=== PATIENT | male | born 1995 | race African-American/Black ===

== ENCOUNTER 2025-04-07 20:05 | Emergency (ER) | payer SELFPAY ==
[2025-04-07 22:50] LABS: Influenza A Ag Negative; Influenza B Ag Negative; SARS-CoV-2 Antigen Rapid Res Negative (Negative)
--- NOTE | 2025-04-07 22:59 | ER ---
Nurse's Notes [facility] Name: Lucas Garces Age: 30 yrs Sex: Male : 1995 Arrival Date: 04/07/2025 Time: 20:05 Bed 9 Private MD: Diagnosis: Acute pharyngitis, unspecified;Cough Presentation: 04/07 20:24 Chief complaint: Patient states: congestion, sore throat, headache X1 day. Coronavirus lg3 screen: At this time, unable to obtain information related to travel outside the [place] Ebola Screen: No symptoms or risks identified at this time. Initial Sepsis Screen: Does the patient meet any 2 criteria? No. Patient's initial sepsis screen is negative. Does the patient have a suspected source of infection? No. Patient's initial sepsis screen is negative. Risk Assessment: Do you want to hurt yourself or someone else? Patient reports no desire to harm self or others. Onset of symptoms was April 06, 2025. 20:24 Method Of Arrival: Ambulatory lg3 20:24 Acuity: DIONICIO 4 lg3 Triage Assessment: 20:28 General: Appears in no apparent distress. comfortable, Behavior is calm, cooperative. lg3 Pain: Complains of pain in head. EENT: Reports nasal congestion nasal discharge pain when swallowing. Neuro: No deficits noted. Agee Agitation-Sedation Scale (RASS): 0 - Alert and Calm Level of Consciousness is awake, alert, obeys commands, Oriented to person, place, time, situation. Cardiovascular: No deficits noted. Denies chest pain, shortness of breath, Capillary refill < 3 seconds Clubbing of nail beds is absent JVD is absent Patient's skin is warm and dry. Respiratory: Reports cough that is persistent pain with cough Airway is patent Respiratory effort is even, unlabored, Respiratory pattern is regular, symmetrical, Breath sounds are clear bilaterally. GI: No deficits noted. No signs and/or symptoms were reported involving the gastrointestinal system. : No signs and/or symptoms were reported regarding the genitourinary system. Derm: No deficits noted. No signs and/or symptoms reported regarding the dermatologic system. Skin is intact, is healthy with good turgor, Skin is dry, Skin is normal, Skin temperature is warm. Musculoskeletal: No deficits noted. No signs and/or symptoms reported regarding the musculoskeletal system. Circulation, motion, and sensation intact. Range of motion: intact in all extremities. Historical: - Allergies: 20:28 No Known Allergies; lg3 - Home Meds: 20:28 None [Active]; lg3 - PMHx: 20:28 None; lg3 - PSHx: 20:28 None; lg3 - Immunization history:: Adult Immunizations up to date. - Infectious Disease History:: Denies. - Social history:: Smoking status: Patient denies any tobacco usage or history of. Patient/guardian denies using alcohol, street drugs. Screenin:30 [facility] ED Fall Risk Assessment (Adult) History of falling in the last 3 months, tb4 including since admission No falls in past 3 months (0 pts) Confusion or Disorientation No (0 pts) Intoxicated or Sedated No (0 pts) Impaired Gait No (0 pts) Mobility Assist Device Used No (0 pt) Altered Elimination No (0 pt) Score/Fall Risk Level 0 - 2 = Low Risk Oriented to surroundings, Maintained a safe environment. Abuse screen: Denies threats or abuse. Nutritional screening: No deficits noted. Tuberculosis screening: No symptoms or risk factors identified. Assessment: 21:30 Reassessment: Patient is alert, oriented x 3, equal unlabored respirations, skin tb4 warm/dry/pink. See triage note. Reassessment: Patient denies pain at this time. General: Appears. General: Appears in no apparent distress. Behavior is calm, cooperative. Pain: Denies pain. Neuro: No deficits noted. Level of Consciousness is awake, alert, obeys commands, Oriented to person, place, time, situation, Moves all extremities. Full function Gait is steady, Speech is normal, Facial symmetry appears normal. Cardiovascular: No deficits noted. Denies chest pain, shortness of breath. Respiratory: Reports cough that is non-productive, X1 day Airway is patent Trachea midline Respiratory effort is even, unlabored, Respiratory pattern is regular, Breath sounds are clear bilaterally. Onset: The symptoms/episode began/occurred yesterday, Denies shortness of breath at rest, labored breathing, pain with cough. GI: No deficits noted. No signs and/or symptoms were reported involving the gastrointestinal system. : No deficits noted. No signs and/or symptoms were reported regarding the genitourinary system. EENT: Nares with drainage noted Congestion. Oral mucosa is moist. Throat is clear. Derm: No deficits noted. No signs and/or symptoms reported regarding the dermatologic system. Skin is intact, is healthy with good turgor, Skin is moist, Skin is normal, Skin temperature is warm. Musculoskeletal: No deficits noted. No signs and/or symptoms reported regarding the musculoskeletal system. 23:27 Reassessment: Patient and/or family updated on plan of care and expected duration. Pain ha1 level reassessed. Patient is alert, oriented x 3, equal unlabored respirations, skin warm/dry/pink. Vital Signs: 20:24 BP 150 / 88; Pulse 86; Resp 17 S; Temp 98.5(TE); Pulse Ox 100% on R/A; Weight 61.23 kg lg3 (R); Height 5 ft. 7 in. (R); 21:30 BP 124 / 72; Pulse 84; Resp 20; Temp 97.6(O); Pulse Ox 100% on R/A; Weight 61.23 kg; tb4 Height 5 ft. 7 in. ; Pain 0/10; 23:27 BP 117 / 68; Pulse 79; Resp 18 S; Pulse Ox 100% on R/A; ha1 21:30 Body Mass Index 21.14 (61.23 kg, 170.18 cm) tb4 21:30 Pain Scale: Adult tb4 ED Course: 20:06 Patient arrived in ED. jj6 20:17 David Wilson PA is PHCP. cp 20:17 Amilcar Dasilva MD is Attending Physician. cp 20:28 Triage completed. lg3 20:28 Arm band placed on right wrist. lg3 21:30 Patient has correct armband on for positive identification. Call light in reach. tb4 Patient sitting in a chair. 23:26 No provider procedures requiring assistance completed. Patient did not have IV access ha1 during this emergency room visit. 23:27 Provided Education on: FOLLOW [employer] . ha1 Administered Medications: No medications were administered Medication: 21:30 VIS not applicable for this client. tb4 Outcome: 22:58 Discharge ordered by . cp 23:26 Discharged to home ambulatory, with family, ha1 23:26 Condition: stable 23:26 Discharge instructions given to patient, family, Instructed on discharge instructions, follow up and referral plans. medication usage, Demonstrated understanding of instructions, follow-up care, medications, Prescriptions given X 23:28 Patient left the ED. ha1 Signatures: David Wilson PA PA cp Able, Lacie RN RN lg3 Danette Pricej6 Sybil Jimenez, RN RN ha1 Susan Arnold RN RN tb4
--- NOTE | 2025-04-07 22:59 | EDPHYS ---
Physician Documentation [facility] Name: Lucas Garces Age: 30 yrs Sex: Male : 1995 Arrival Date: 04/07/2025 Time: 20:05 Bed 9 Private MD: ED Physician Amilcar Dasilva HPI: 04/07 21:20 This 30 yrs old Black Male presents to ER via Ambulatory with complaints of Cough, cp Congestion, Sore Throat, Headache. 21:20 The patient or guardian reports cough, that is intermittent, nasal congestion/drainage, cp sore throat. Onset: The symptoms/episode began/occurred yesterday. Associated signs and symptoms: Pertinent negatives: diarrhea, fever, vomiting. Historical: - Allergies: 20:28 No Known Allergies; lg3 - Home Meds: 20:28 None [Active]; lg3 - PMHx: 20:28 None; lg3 - PSHx: 20:28 None; lg3 - Immunization history:: Adult Immunizations up to date. - Infectious Disease History:: Denies. - Social history:: Smoking status: Patient denies any tobacco usage or history of. Patient/guardian denies using alcohol, street drugs. ROS: 21:25 Constitutional: Negative for body aches, chills, fever, poor PO intake, cp 21:25 Eyes: Negative for injury, pain, redness, and discharge, cp 21:25 ENT: Positive for sore throat, Negative for drainage from ear(s), ear pain, difficulty swallowing, difficulty handling secretions, 21:25 Respiratory: Positive for cough, with no reported sputum, Negative for shortness of breath, wheezing, 21:25 Abdomen/GI: Negative for abdominal pain, vomiting, diarrhea, constipation, 21:25 Neuro: Negative for headache, 21:25 All other systems are negative, Exam: 21:30 Constitutional: The patient appears in no acute distress, alert, awake, non-toxic, well cp developed, well nourished, 21:30 Head/Face: Normocephalic, atraumatic. cp 21:30 Eyes: Periorbital structures: appear normal, Conjunctiva: normal, no exudate, no injection, Sclera: no appreciated abnormality, Lids and lashes: appear normal, bilaterally, 21:30 ENT: External ear(s): are unremarkable, Ear canal(s): are normal, clear, TM's: dullness, bilaterally, Nose: is normal, Mouth: Lips: moist, Oral mucosa: moist, Posterior pharynx: Airway: no evidence of obstruction, patent, Tonsils: no enlargement, no exudate, erythema, that is mild, exudate, is not appreciated, 21:30 Neck: ROM/movement: Meningeal signs: are not present, Lymph nodes: no appreciated lymphadenopathy, 21:30 Cardiovascular: Rate: normal, 21:30 Respiratory: the patient does not display signs of respiratory distress, Respirations: normal, no use of accessory muscles, no retractions, labored breathing, is not present, Breath sounds: are clear throughout, no decreased breath sounds, no stridor, no wheezing, 21:30 Abdomen/GI: Inspection: abdomen appears normal, Vital Signs: 20:24 BP 150 / 88; Pulse 86; Resp 17 S; Temp 98.5(TE); Pulse Ox 100% on R/A; Weight 61.23 kg lg3 (R); Height 5 ft. 7 in. (R); 21:30 BP 124 / 72; Pulse 84; Resp 20; Temp 97.6(O); Pulse Ox 100% on R/A; Weight 61.23 kg; tb4 Height 5 ft. 7 in. ; Pain 0/10; 23:27 BP 117 / 68; Pulse 79; Resp 18 S; Pulse Ox 100% on R/A; ha1 21:30 Body Mass Index 21.14 (61.23 kg, 170.18 cm) tb4 21:30 Pain Scale: Adult tb4 MDM: 20:33 Medical Screening Exam initiated cp 22:57 Data reviewed: vital signs, nurses notes, lab test result(s), and as a result, I will cp discharge patient. 22:57 Differential Diagnosis: Bronchitis Influenza Pharyngitis Otitis Media Viral Syndrome cp Pneumonia. Counseling: I had a detailed discussion with the patient and/or guardian regarding the historical points, exam findings, and any diagnostic results supporting the discharge/admit diagnosis, lab results, to return to the emergency department if symptoms worsen or persist or if there are any questions or concerns that arise at home. 04/07 21:19 Order name: Group A Streptococcus Rapid; Complete Time: 22:56 04/07 21:19 Order name: COVID-19 Ag + Flu A+B Ag; Complete Time: 22:56 cp 04/07 22:52 Order name: Throat Culture EDMS Administered Medications: No medications were administered Disposition: 04/08 23:19 Co-signature as Attending Physician, Amilcar Dasilva MD I reviewed the patient's care rn provided by the Advanced Practice Provider and agree with the diagnosis and treatment plan. Disposition Summary: 04/07/25 22:58 Discharge Ordered Notes: Location: Home cp Problem: new cp Symptoms: are unchanged cp Condition: Stable cp Diagnosis - Acute pharyngitis, unspecified cp - Cough cp Followup: cp - With: Private Physician - When: 5 - 6 days - Reason: symptoms continue Discharge Instructions: - Discharge Summary Sheet cp - Pharyngitis cp - Sore Throat cp - Cough, Adult cp Forms: - Medication Reconciliation Form cp - Antibiotic Education cp - Prescription Opioid Use cp - Patient Portal Instructions cp - Leadership Thank You Letter cp Prescriptions: - Tessalon Perles 100 mg Oral Capsule - take 1 capsule ORAL route every 8 hours As needed; 15 capsule; Refills: 0, cp Product Selection Permitted Signatures: Dispatcher [employer] EDAmilcar Rich MD MD rn David Wilson PA PA Eloina Garces RN RN lg3
[2025-04-07 23:48] VITALS: O2SAT 100
[2025-04-07 23:49] VITALS: TEMP 97.6
[2025-04-07 23:50] VITALS: BP 117/68
== END 2025-04-07 23:28 | disposition home or self-care (01) ==
LOC: ER 20:05
DX: J02.9 Acute pharyngitis, unspecified (principal); R05.9 Cough, unspecified; Z11.52 Encounter for screening for COVID-19
CPT/HCPCS: 36415; 87070; 87428; 99283